=== PATIENT | male | born 2000 | race Caucasian/White ===

== ENCOUNTER → 2021-06-09 | Outpatient (CLI) | payer BC | LOC: LAB 12:10 | DX: Z20.822 Contact with and (suspected) exposure to COVID-19 (principal) ==

== ENCOUNTER 2022-12-09 00:31 | Emergency (ER) | payer BC ==
[~2022-12-09] VITALS: Ht 177.8 cm; Wt 63.6 kg
[2022-12-09] MEDS ORDERED: KETOROLAC10 MG PO (01:35)
[2022-12-09 01:53] VITALS: BP 110/68
== END 2022-12-09 01:53 | disposition home or self-care (01) ==
LOC: ED 00:31
DX: S62.316A Displaced fracture of base of fifth metacarpal bone, right hand, initial encounter for closed fracture (principal); S62.394A Other fracture of fourth metacarpal bone, right hand, initial encounter for closed fracture; Z28.311 Partially vaccinated for COVID-19; F17.210 Nicotine dependence, cigarettes, uncomplicated; W22.8XXA Striking against or struck by other objects, initial encounter; Y92.810 Car as the place of occurrence of the external cause
CPT/HCPCS: J1885